=== PATIENT | female | born 1940 | race Caucasian/White ===

== ENCOUNTER → 2020-07-28 | Day surgery (SDC) | payer OTHER ==
[~2020-07-28] MED LIST: AMLODIPINE BES2.5 MG PO; ASPIRIN EC81 MG PO; CARAFATE1 GM PO; CARAFATE1 GM/10 ML PO; CLONAZEPAM1 MG PO; ELIQUIS2.5 MG PO; FERROUS SULFAT325 MG PO; KAPSPARGO SPRI100 MG PO; LEVOTHYROXINE50 MCG PO; METOPROLOL SUC100 MG PO; NORCO 5-325 TA1 EACH PO; PANTOPRAZOLE SO40 MG PO; SIMVASTATIN40 MG PO; VISION FORMULA1 EACH PO; VISION PLUS LU1 EACH PO; VITAMIN D250 MCG PO
== END | disposition home or self-care (01) ==
LOC: OR 07:13
PROVIDERS: Internal Medicine Gastroenterology
PROC: 0D758ZZ Dilation of Esophagus, Via Natural or Artificial Opening Endoscopic (ICD-10-PCS; principal; 2020-07-28 11:00)
DX: K22.2 Esophageal obstruction (principal); K21.00 Gastro-esophageal reflux disease with esophagitis, without bleeding; K44.9 Diaphragmatic hernia without obstruction or gangrene; I10 Essential (primary) hypertension; E78.5 Hyperlipidemia, unspecified; K21.9 Gastro-esophageal reflux disease without esophagitis
CPT/HCPCS: J2704; J7040

== ENCOUNTER → 2021-06-04 | Outpatient (CLI) | payer OTHER | LOC: EMI 08:25 | DX: S72.001A Fracture of unspecified part of neck of right femur, initial encounter for closed fracture (principal); M89.9 Disorder of bone, unspecified | CPT/HCPCS: 73721 ==